=== PATIENT | male | born 1980 | race Caucasian/White ===

== ENCOUNTER 2020-08-14 13:24 | Inpatient (IN) | payer SELFPAY ==
[~2020-08-14] VITALS: Ht 182.9 cm; Wt 79.4 kg
--- NOTE | 2020-08-14 13:24 | NUR ---
Patient brought in by [facility] for dizziness, vitals stable
[2020-08-14 13:49] LABS: BASOPHILS % (AUTO) 0.8 % (0.0-2.0); EOSINOPHILS # (AUTO) 0.1 K/uL (0.0-0.7); EOSINOPHILS % (AUTO) 1.3 % (0.0-7.0); HEMATOCRIT 44.1 % (36.7-47.1); HEMOGLOBIN 15.1 g/dL (12.5-16.3); LYMPHOCYTES # (AUTO) 0.6 K/uL (20.0-40.0); LYMPHOCYTES % (AUTO) 11.2 % (20.5-51.5); MEAN CORPUSCULAR HEMOGLOBIN 31.5 uug (23.8-33.4); MEAN CORPUSCULAR HGB CONC 34 g/dL (32.5-36.3); MEAN CORPUSCULAR VOLUME 91.7 fL (73.0-96.2); MONOCYTES # (AUTO) 0.4 K/uL (2.0-10.0); MONOCYTES % (AUTO) 7.6 % (0.0-11.0); NEUTROPHILS % (AUTO) 79.1 % (38.5-71.5); PLATELET COUNT (AUTO) 172 K/uL (152-348)
[2020-08-14 14:04] LABS: CARBON DIOXIDE 23 mmol/L (21-32); CHLORIDE 101 mmol/L (98-107); GLUCOSE 162 mg/dL (74-106); POTASSIUM 3.7 mmol/L (3.5-5.1); UREA NITROGEN, BLOOD 15 mg/dL (7-18)
[2020-08-14 14:21] LABS: ALANINE AMINOTRANSFERASE 90 U/L (16-63); ALKALINE PHOSPHATASE 82 U/L (50-136); ASPARTATE AMINOTRANSFERASE 49 U/L (15-37); BILIRUBIN,DIRECT 0.1 mg/dL (0.0-0.2); BILIRUBIN,TOTAL 0.7 mg/dL (0.2-1.0); TOTAL PROTEIN, SERUM 7.6 g/dL (6.4-8.2)
[2020-08-14 14:23] LABS: ETHANOL < 3 MG/DL (0-0)
[2020-08-14] MEDS ORDERED: IV NS 1000 ML 1,000 ML IV ONE (14:30)
[2020-08-14 14:50] LABS: THYROID STIMULATING HORMONE 0.984 mIU/mL (0.358-3.740)
[2020-08-14] MEDS ORDERED: MECLIZINE HCL 25 MG TABLET PO ONE (15:30)
[2020-08-14] MEDS ORDERED: MECLIZINE HCL 25 MG TABLET ONE (15:38)
--- NOTE | 2020-08-14 16:30 | NUR ---
MD Quan on the phone with JOSE Kerr for panel call at this time
[2020-08-14] MEDS ORDERED: ENOXAPARIN SODIUM 40 MG/0.4 ML DISP.SYRIN SQ SCH ×2 (16:45→21:46)
[2020-08-14] MEDS ORDERED: ACETAMINOPHEN 325 MG TABLET PO PRN (16:45)
[2020-08-14 17:15] LABS: *BILIRUBIN,URIN NEGATIVE (NEGATIVE); *BLOOD, URINE NEGATIVE (NEGATIVE); *CLARITY,URINE CLEAR (CLEAR); *COLOR,URINE YELLOW (YELLOW); *KETONES,URINE NEGATIVE (NEGATIVE); *UROBILINOGEN,URINE 0.2 E.U./dl (NORMAL); LEUKOCYTE ESTERASE ,URINE TRACE (NEGATIVE); NITRITE, URINE NEGATIVE (NEGATIVE); PH,URINE 6.5 (5.0-8.0); UGLUCOSE NEGATIVE (NEGATIVE)
[2020-08-14 17:17] LABS: BACTERIA,URINE NONE SEEN /HPF (NONE SEEN); RBC,URINE 0-3 /HPF (0-3)
[2020-08-14 17:21] LABS: *AMPHETAMINE, URINE NEGATIVE (NEGATIVE); *CANNABINOID, URINE NEGATIVE (NEGATIVE); *COCCAINE, URINE NEGATIVE (NEGATIVE); *OPIATE, URINE NEGATIVE (NEGATIVE); *PHENCYCLIDINE SCREEN,URINE NEGATIVE (NEGATIVE)
--- NOTE | 2020-08-14 17:30 | NUR ---
photovoltaic technician at bedside
[2020-08-14] MEDS: BLOOD SUGAR DIAGNOSTIC 1 EACH STRIP VI SCH (18:56)
--- NOTE | 2020-08-14 19:20 | NUR ---
Patient picked up by telephone betting clerk to be taken to [facility] for an MRI
--- NOTE | 2020-08-14 20:43 | NUR ---
Patient returned from MRI at [facility] at this time.
[2020-08-14] MEDS ORDERED: BLOOD SUGAR DIAGNOSTIC 1 EACH STRIP VI SCH (21:00)
--- NOTE | 2020-08-14 21:41 | NUR ---
Patient transferred to Room 314 under the care of Heather GOODMAN. Belongings list done - belongings with patient. VSS. Stable condition.
[2020-08-14 21:53] VITALS: BP 143/77
[2020-08-14] MEDS: SIMVASTATIN 10 MG TABLET PO SCH (22:22)
[2020-08-14] MEDS ORDERED: diphenhydrAMINE 25 MG CAP PO PRN ×2 (22:30)
--- NOTE | 2020-08-14 22:45 | NUR ---
Nurse Swallow Evaluation complete. Pt able to swallow without difficulties or aspiration. Aliya Kerr CLINICAL RESEARCH DIRECTOR notified with orders to keep patient NPO until evaluated by
[2020-08-14] MEDS: IV NS 1000 ML 1,000 ML IV PRN (22:54)
[2020-08-15] MEDS: BLOOD SUGAR DIAGNOSTIC 1 EACH STRIP VI SCH ×6 (00:02→23:53)
[2020-08-15 00:43] VITALS: BP 129/71
[2020-08-15 05:26] VITALS: BP 109/61
[2020-08-15 06:17] LABS: BASOPHILS % (AUTO) 0.3 % (0.0-2.0); EOSINOPHILS # (AUTO) 0.2 K/uL (0.0-0.7); EOSINOPHILS % (AUTO) 3.4 % (0.0-7.0); HEMATOCRIT 44.1 % (36.7-47.1); LYMPHOCYTES # (AUTO) 1.5 K/uL (20.0-40.0); LYMPHOCYTES % (AUTO) 26.4 % (20.5-51.5); MEAN CORPUSCULAR HEMOGLOBIN 31.3 uug (23.8-33.4); MEAN CORPUSCULAR HGB CONC 34 g/dL (32.5-36.3); MEAN CORPUSCULAR VOLUME 91.7 fL (73.0-96.2); MONOCYTES # (AUTO) 0.6 K/uL (2.0-10.0); MONOCYTES % (AUTO) 10.7 % (0.0-11.0); NEUTROPHILS # (AUTO) 3.4 K/uL (1.8-8.9); NEUTROPHILS % (AUTO) 59.2 % (38.5-71.5); PLATELET COUNT (AUTO) 172 K/uL (152-348); WHITE BLOOD COUNT (AUTO) 5.8 K/uL (3.6-10.2)
--- NOTE | 2020-08-15 06:25 | NUR ---
Pt admitted 08/14/20 at 2138H from ER via gurney in stable condition, AOx4. Denies SOB or chest pain at this time. Denies being dizzy at this time. Neurological assessment completed upon patient arrival and Q4 as ordered. NIHSS stroke scale performed, score of 0. Pt is able to ambulate but urged to use urinal or call for assistance before ambulating. IV site patent and infusing NS at 50cc/hr. Pt remained NPO throughout the night. Awaiting for swallow eval. No other issues or concerns at this time, will endorse to day shift.
[2020-08-15 06:30] LABS: CREATININE 1.1 mg/dL (0.6-1.3); POTASSIUM 4.4 mmol/L (3.5-5.1)
[2020-08-15 06:37] LABS: BILIRUBIN,TOTAL 0.5 mg/dL (0.2-1.0); MAGNESIUM 2.2 mg/dL (1.8-2.4); PHOSPHOROUS 3.3 mg/dL (2.5-4.9); TOTAL PROTEIN, SERUM 7.3 g/dL (6.4-8.2)
[2020-08-15 06:42] LABS: THYROID STIMULATING HORMONE 2.841 mIU/mL (0.358-3.740)
--- NOTE | 2020-08-15 07:30 | NUR ---
Received patient awake, alert and oriented times 4. Patient report dizziness and a warm feeling that last a few seconds per patient report. Patient stable, denies any pain of SOB. Patient report feeling jittery. Safety precautions are in place. Will continue to monitor.
[2020-08-15] MEDS: CEphaleXIN 500 MG CAPSULE PO SCH ×2 (09:06→17:37)
[2020-08-15] MEDS: PANTOPRAZOLE SODIUM 40 MG VIAL IV SCH (09:06)
[2020-08-15] MEDS: ASPIRIN EC 81 MG TABLET.DR PO SCH (09:06)
[2020-08-15] MEDS ORDERED: LORAZEPAM 0.5 MG TABLET PO ONE (09:30)
[2020-08-15 10:04] LABS: ETHANOL < 3 MG/DL (0-0)
[2020-08-15 11:14] VITALS: BP 120/78
[2020-08-15 15:35] VITALS: BP 111/66
--- NOTE | 2020-08-15 19:50 | NUR ---
Patient left resting in bed, no sign of distress noted. Patient denies any pain or SOB. Safety measures implemented. Will endorse to oncoming nurse.
[2020-08-15 20:30] VITALS: BP 116/68
--- NOTE | 2020-08-15 21:00 | NUR ---
Received patient in bed. AAOx4. NO s/s of acute distress noted at this time. Pt on RA denies SOB. C/o mild pain in the back of their head but stated "It was only for a little bit, I think I am just nervous about what the results are going to say". Right FA IV patent and intact. color television console monitor in place. Safety measures in place.
[2020-08-15] MEDS: SIMVASTATIN 10 MG TABLET PO SCH (21:10)
[2020-08-15] MEDS ORDERED: SWABABLE VALVE TRANSFER SET EA MC ONE (22:19)
[2020-08-15] MEDS ORDERED: IOHEXOL 350 100 ML INFUS..BTL ONE (22:19)
[2020-08-15] MEDS ORDERED: IV NORMAL SALINE 250 ML IV ONE (22:19)
[2020-08-15] MEDS: IV NS 1000 ML 1,000 ML IV PRN (23:53)
[2020-08-16 00:43] VITALS: BP 114/67
[2020-08-16 05:09] VITALS: BP 112/64
[2020-08-16] MEDS: BLOOD SUGAR DIAGNOSTIC 1 EACH STRIP VI SCH ×2 (06:20→12:18)
[2020-08-16 06:41] LABS: BASOPHILS % (AUTO) 0.5 % (0.0-2.0); EOSINOPHILS # (AUTO) 0.2 K/uL (0.0-0.7); EOSINOPHILS % (AUTO) 3.2 % (0.0-7.0); HEMATOCRIT 44.5 % (36.7-47.1); LYMPHOCYTES # (AUTO) 1.3 K/uL (20.0-40.0); LYMPHOCYTES % (AUTO) 21.6 % (20.5-51.5); MEAN CORPUSCULAR HEMOGLOBIN 31.4 uug (23.8-33.4); MEAN CORPUSCULAR HGB CONC 34 g/dL (32.5-36.3); MONOCYTES # (AUTO) 0.5 K/uL (2.0-10.0); MONOCYTES % (AUTO) 7.9 % (0.0-11.0); NEUTROPHILS # (AUTO) 4.1 K/uL (1.8-8.9); NEUTROPHILS % (AUTO) 66.8 % (38.5-71.5); PLATELET COUNT (AUTO) 175 K/uL (152-348); RED BLOOD CELL COUNT(AUTO) 4.78 MIL/uL (4.06-5.63); WHITE BLOOD COUNT (AUTO) 6.1 K/uL (3.6-10.2)
[2020-08-16 07:04] LABS: MAGNESIUM 2.2 mg/dL (1.8-2.4); PHOSPHOROUS 3.3 mg/dL (2.5-4.9); POTASSIUM 4.1 mmol/L (3.5-5.1)
--- NOTE | 2020-08-16 07:30 | NUR ---
Received patient awake, alert and oriented times 4. Patient report dizziness and a warm feeling that last a few seconds again per patient report. Patient is saturating well on room air. Pt has been able to ambulate to and from the restroom. Patient stable, denies any pain of SOB. Safety precautions are in place. Will continue to monitor
[2020-08-16] MEDS ORDERED: ASPI-618 PO (08:57)
[2020-08-16] MEDS ORDERED: CEPH500C2 PO (08:57)
[2020-08-16] MEDS ORDERED: SIMV10TA98 PO (08:57)
[2020-08-16] MEDS: ASPIRIN EC 81 MG TABLET.DR PO SCH (09:24)
[2020-08-16] MEDS: PANTOPRAZOLE SODIUM 40 MG VIAL IV SCH (09:24)
[2020-08-16] MEDS: CEphaleXIN 500 MG CAPSULE PO SCH (09:24)
[2020-08-16 11:27] VITALS: BP 111/73
[2020-08-16 15:32] VITALS: BP 97/50
--- NOTE | 2020-08-16 16:45 | NUR ---
Patient discharges with all paperwork and belongings. Patient denies any pain or SOB. Pt was evaluated by the sanding machine tender automatic and cleared for discharge. All belongings list signed and completed. ID band and IV removed. Pt picked up by friend Brian. Patient teaching completed. PT walked out of facility with no issues. Refused wheelchair.
[2020-08-17] MEDS ORDERED: PANTOPRAZOLE SODIUM 40 MG TABLET.DR PO SCH (07:00)
== END 2020-08-16 16:45 | disposition home or self-care (01) | DRG 69 ==
LOC: ER 13:24 → TELE3 21:14
PROVIDERS: ADMIT Registered Nurse; ATTEND Registered Nurse
DX: G45.9 Transient cerebral ischemic attack, unspecified (principal); N39.0 Urinary tract infection, site not specified; E87.2 Acidosis; F17.210 Nicotine dependence, cigarettes, uncomplicated; I10 Essential (primary) hypertension; R53.1 Weakness; B96.89 Other specified bacterial agents as the cause of diseases classified elsewhere; E78.5 Hyperlipidemia, unspecified; Z20.822 Contact with and (suspected) exposure to COVID-19; H54.7 Unspecified visual loss; R29.700 NIHSS score 0; R40.2142 Coma scale, eyes open, spontaneous, at arrival to emergency department; R40.2362 Coma scale, best motor response, obeys commands, at arrival to emergency department; R40.2252 Coma scale, best verbal response, oriented, at arrival to emergency department; G47.30 Sleep apnea, unspecified
CPT/HCPCS: 36415; 70030-TC; 70450; 70496; 70551; 83605; 83735; 84100; 84443; 85025; 85730; 93005; 93307; 93880; A4663; C9113; G0378; G0480; J1650; J7030; J7050; J8597; Q0163; Q9967